=== PATIENT | female | born 1995 | race Caucasian/White ===

== ENCOUNTER → 2020-12-10 | Outpatient (CLI) | payer OTHER | LOC: LAB 15:49 | DX: N93.8 Other specified abnormal uterine and vaginal bleeding (principal) ==

== ENCOUNTER → 2020-12-11 | Outpatient (CLI) | payer OTHER | LOC: ULTRA 15:14 | DX: N83.02 Follicular cyst of left ovary (principal); N83.01 Follicular cyst of right ovary; N85.4 Malposition of uterus; N93.8 Other specified abnormal uterine and vaginal bleeding ==

== ENCOUNTER → 2021-03-11 | Outpatient (CLI) | payer OTHER | LOC: LAB 16:30 | PROVIDERS: ATTEND Obstetrics & Gynecology | DX: N92.6 Irregular menstruation, unspecified (principal) ==